=== PATIENT | female | born 1975 | race Caucasian/White ===

== ENCOUNTER 2017-05-31 09:12 | Emergency (ER) | payer MEDICAID ==
[~2017-05-31] VITALS: Ht 157.5 cm; Wt 100.0 kg
[2017-05-31 09:26] VITALS: BP 99/55; PULSE 75; RESP 20; TEMP 98.6; O2SAT 99
--- NOTE | 2017-05-31 09:41 | PD ---
HPI Chief Complaint: Respiratory Distress Time Seen by Provider: 09:29 Travel History International Travel<30 days: No Contact w/Intl Traveler<30days: No Traveled to known affect area: No History of Present Illness HPI This is a 42-year-old female who presents to the emergency department with a history of asthma with 1 week of shortness of breath and productive cough with some yellow sputum, constant, moderate severity with no associated fevers or chills. She says she has a prescription for azithromycin at home but she was afraid to take it because she thought it might make her dizzy. She is out of all of her asthma medications. Her child has been sick with similar symptoms. [facility] Past Medical History Asthma: Yes Respiratory: Yes Tetanus Vaccination: < 5 Years ?: Not : 1 Para: 1 Past Surgical History Surgical History: No Previous Surgery Social History Alcohol Use: No Tobacco Use: No Substance Use: No Allergies-Medications (Allergen,Severity, Reaction): Coded Allergies: ciprofloxacin (Verified Allergy, Severe, Respiratory Failure, 05/31/17) sulfabenzamide (Verified Allergy, Severe, Respiratory Failure, 05/31/17) azithromycin (Verified Adverse Reaction, Severe, Shortness of Breath, 05/31) she thinks Reported Meds & Prescriptions Reported Meds & Active Scripts Active No Active Prescriptions or Reported Medications Review of Systems Except as stated in HPI: all other systems reviewed are Neg Physical Exam Narrative GENERAL:Well appearing, no acute distress SKIN: Focused skin assessment warm and dry. HEAD: Atraumatic. Normocephalic. EYES: Pupils equal and round. No injection or drainage. ENT: Moist mucous membranes NECK: Trachea midline. CARDIOVASCULAR: Regular rate and rhythm. No murmur appreciated. RESPIRATORY: Clear to auscultation. Breath sounds equal bilaterally. GASTROINTESTINAL: Abdomen soft, non-tender, nondistended. MUSCULOSKELETAL: No obvious deformities. NEUROLOGICAL: Awake and alert. No obvious cranial nerve deficits. Moving all extremities. PSYCHIATRIC: Appropriate mood and affect; insight and judgment normal. Data Data Last Documented VS Vital Signs Date Time Temp Pulse Resp B/P (MAP) Pulse Ox O2 Delivery O2 Flow Rate FiO2 05/31/17 09:26 98.6 75 20 99/55 (70) 99 MDM Medical Decision Making Medical Screen Exam Complete: Yes Emergency Medical Condition: Yes Differential Diagnosis Pneumonia, bronchitis, acute asthma exacerbation, viral syndrome Narrative Course This is a very well-appearing 42-year-old female who presents to the emergency department with symptoms of bronchitis. She has a benign exam and a normal oxygen saturation. Given her symptoms have been going on a week I recommended that she take the azithromycin that she has at home. In addition her asthma medications will be refilled and she will be given prednisone. I do not think patient requires any diagnostics in the emergency department. She is out of the window for flu treatment. Patient will be discharged home. Diagnosis Primary Impression: Bronchitis Patient Instructions: General Instructions Additional Instructions: If you develop severe shortness of breath, chest pain, or difficulty breathing return to the emergency department. Use albuterol every 4 hours for the next 2 days. Then use as needed for wheezing. Complete your course of steroids. Complete your course of antibiotics. Follow up with your primary care physician in 2-3 days if your symptoms have not improved. Med/Other Pt SpecificInfo: Prescription(s) given Scripts Mometasone Nasal [place] (Nasonex Nasal [place]) 50 Mcg/Act Naspr 2 SPRAY EACH NARE DAILY for Allergy Management, #1 BOTTLE 0 Refills Prov: Rebecca Way MD 05/31/17 Fluticasone 12 GM Inh (Flovent Hfa 12 GM Inh) 110 Mcg/Act Inh 2 PUFF INH BID for Asthma Management, #1 INHALER 0 Refills Prov: Rebecca Way MD 05/31/17 Albuterol 8.5 GM Inh (Proair Hfa 8.5 GM Inh) 90 Mcg/Act Aer 2 PUFF INH Q4-6H Y for SHORTNESS OF BREATH, #1 INHALER 0 Refills 108 mcg/actuation Prov: Rebecca Way MD 05/31/17 Prednisone (Prednisone) 20 Mg Tab 40 MG PO DAILY, #10 TAB 0 Refills Take 40 mg (2 tablets) daily for 5 days Prov: Rebecca Way MD 05/31/17 Disposition: 01 DISCHARGE HOME Condition: Stable Rebecca Way MD May 31, 2017 09:41
[2017-05-31] MEDS ORDERED: FLUTI110I INH (09:44)
[2017-05-31] MEDS ORDERED: MOME17I EACH NARE (09:44)
[2017-05-31] MEDS ORDERED: PRED20 PO (09:44)
[2017-05-31] MEDS ORDERED: ALBUAER3 INH (09:44)
[2017-05-31] MEDS ORDERED: AZIT250T3 PO (10:00)
== END 2017-05-31 12:26 | disposition home or self-care (01) ==
LOC: NEPD 09:12
DX: J40 Bronchitis, not specified as acute or chronic (principal); J45.909 Unspecified asthma, uncomplicated
CPT/HCPCS: 99283